=== PATIENT | male | born 1990 | race Caucasian/White ===

== ENCOUNTER 2017-02-19 09:40 | Emergency (ER) | payer BC ==
[~2017-02-19] VITALS: Ht 177.8 cm; Wt 61.8 kg
[2017-02-19 09:55] VITALS: BP 144/87
[2017-02-19] MEDS ORDERED: CEPH500C PO (10:03)
[2017-02-19] MEDS ORDERED: AMPH20TA2 PO (10:10)
[2017-02-19] MEDS ORDERED: TEST200V22 IM (10:10)
== END 2017-02-19 10:17 | disposition home or self-care (01) ==
LOC: ED 09:45
DX: T38.7X5A Adverse effect of androgens and anabolic congeners, initial encounter (principal); M79.89 Other specified soft tissue disorders
CPT/HCPCS: 99282; 99283